=== PATIENT | male | born 1945 | race Caucasian/White ===

== ENCOUNTER 2018-12-16 12:50 | Day surgery (SDC) | payer OTHER, SELFPAY ==
[2018-12-15 08:39] VITALS: BMI 22.3
--- NOTE | 2018-12-16 | PATH_ITS ---
[facility] Accession Number: [id number] . 01 Material submitted: . RIGHT HAND INDEX FINGER . 01 Clinical history: . MASS . 01 Diagnosis: Right Hand Index Finger Mass, Excision: Benign keratinous cyst, ruptured, with giant cell reaction. Negative for malignancy. MRV/12/18/2018 . 01 Electronically signed: . Devika Boothe MD, Pathologist NPI- [id number] . 01 Gross description: . Received one formalin-filled container labeled with the patient's name and labeled index finger mass right hand. The specimen consists of a yellow-owen to owen-arango rough portion of tissue which measures 1.8 x 1.8 x 0.7 cm. The specimen is inked blue, sectioned into five pieces, and entirely submitted in two cassettes. ([id number]) /FRR . 01 Pathologist provided ICD-10: L72.0 . 01 CPT . 502280 Performed at: [facility] [address], [place], [place] [id number] MD Issac Blevins MD Phone: [phone]
[2018-12-16] MEDS: LACTATED RINGERS 1,000 ML 42 ML IV (13:40)
[2018-12-16 13:42] VITALS: BP 119/68; PULSE 90; RESP 16; TEMP 36.4; O2SAT 96; BMI 22.3
--- NOTE | 2018-12-16 14:12 | PM.PREOP ---
Pre-operative Note Interval Note History & Physical reviewed/Exam performed by Physician: Yes Changes to H&P: No
[2018-12-16] MEDS: CEFAZOLIN 2 GM/100 ML FROZ.PIGGY IV (14:28)
--- NOTE | 2018-12-16 14:36 | SUR.OPER ---
Supine on padded OR bed, head on pillow, arms secured on padded arm boards at <90 degrees abduction, legs uncrossed, safety belt at thigh, tape over blanket over lower legs.
[2018-12-16] MEDS: LIDOCAINE 1% W/EPI INJ 20 ML INJ (14:53)
--- NOTE | 2018-12-16 14:56 | SUR.OPER ---
pt monitored by Isreal Royal RN, rhythm srtip and vital sign strip attached to progress note
[2018-12-16 15:29] VITALS: BP 117/69; PULSE 74; RESP 16; TEMP 36.4; O2SAT 95
--- NOTE | 2018-12-16 16:23 | PM.OP.1 ---
Operative Date/Time/Diagnoses Date of procedure: 12/16/18 Time of procedure: 14:23 Pre-op diagnosis: Right index finger mass Post-op diagnosis: same Procedure & Clinicians Procedure: Index finger mass excision Same procedure as scheduled: Yes Indications: Large mass to the right index finger Surgeon: Santino Downing Click Yes if Unassisted: Yes Anesthesia Type: General Operative Notes Findings: Large cystic type mass to the index finger. No sign of any bony reaction. Closure Type: primary Specimen(s): other (Mass was sent to pathology) Estimated Blood Loss (mL): 1 Blood products transfused: none Tourniquet time (min): 30 Procedure in detail: On date of service, patient was met in the holding area where his operative site was signed and witnessed by the OR staff. surgeries once again discussed with the patient in remaining questions or concerns he had were answered fully. Patient was taken back to the operating theater and was placed on the operating table in a supine position. Great care was taken to ensure that all bony prominences were appropriately padded. Well-padded tourniquet was placed up along the upper extremity. A time-out was performed verifying patient's name, procedure, and operative site. The right arm was prepped and draped in the normal sterile fashion. An Esmarch was used to exsanguinate the limb the tourniquet was turned up to 250 mm of mercury. A Justyn incision was made involving the entire index finger. Fifteen blade was used to incise through skin and fascial tissue. Sharp dissection using the 15 blade was used to dissect the tissue away from the mass. The mass was volar to the tendon sheath. The mass was dissected free and a 360 degree fashion. there was no sign of any bony attachment. The mass was removed as 1 large piece and sent to pathology. the finger was then copiously irrigated and then closed with nylon. Patient's hand was cleaned, dressed, and dried. Patient was taken to the PACU in stable condition. Complications: none Condition: stable Disposition: PACU Plan for aftercare: No limits in range of motion. Will limit lifting for 2 weeks
== END 2018-12-16 15:33 | disposition home or self-care (01) ==
PROVIDERS: PCP Family Medicine; Visit Provider Orthopaedic Surgery
PROC: (CPT 26113; principal; 2018-12-16 14:45)
DX: L72.0 Epidermal cyst (principal); M79.644 Pain in right finger(s); F17.210 Nicotine dependence, cigarettes, uncomplicated
CPT/HCPCS: 26113; J0690

== ENCOUNTER → 2025-01-13 09:41 | Outpatient (CLI) | payer MEDICARE, SELFPAY | PROVIDERS: PCP Physician Assistant Medical; Visit Provider Physician Assistant Medical | DX: K61.0 Anal abscess (principal) | CPT/HCPCS: 87070; 87075; 87077; 87186; 87205 ==

== ENCOUNTER → 2025-08-30 11:54 | Outpatient (CLI) | payer MEDICARE, SELFPAY | PROVIDERS: PCP Physician Assistant Medical; Visit Provider Physician Assistant | DX: S81.802A Unspecified open wound, left lower leg, initial encounter (principal); L03.116 Cellulitis of left lower limb | CPT/HCPCS: 87070; 87077; 87147; 87205 ==